=== PATIENT | male | born 1945 | race African-American/Black ===

== ENCOUNTER 2018-03-25 15:11 | Inpatient (IN) | payer OTHER ==
[~2018-03-25] VITALS: Ht 170.2 cm; Wt 64.0 kg
[~2018-03-25 15:11] MED LIST: LIDOCAINE HCL/PF 1% 2ML VIAL ONE
[2018-03-25] MEDS: NALOXONE HCL 0.4 MG/ML 1ML VIAL IV PRN ×2 (15:27→19:25)
[2018-03-25] MEDS ORDERED: NALOXONE HCL 0.4 MG/ML 1ML VIAL ONE (15:30)
[2018-03-25 16:30] LABS: BASOPHILS % 0.6 % (0.0-2.0); EOSINOPHILS % 0.1 % (0.0-5.0); HEMATOCRIT. 30.9 % (42.0-52.0); HEMOGLOBIN. 10.4 g/dL (14.0-18.0); LYMPHOCYTES % 17.6 % (20.0-50.0); MEAN CORPUSCULAR HEMOGLOBIN 35.8 pg (28.0-32.0); MEAN CORPUSCULAR VOLUME 106.2 fL (80.0-94.0); MEAN PLATELET VOLUME 7.8 fl (7.4-10.4); MONOCYTES % 6.7 % (2.0-8.0); PLATELET 169 x1000/uL (130-400); RED BLOOD CELL COUNT 2.91 mill/uL (4.7-6.1); RED CELL DISTRIBUTION WIDTH 18.5 % (11.6-14.6)
[2018-03-25 16:37] LABS: CHLORIDE 102 mEq/L (98-107)
[2018-03-25 16:41] LABS: ETHANOL BLOOD < 10 mg/dL
[2018-03-25 16:44] LABS: AMMONIA 32 uMol/L (<32)
[2018-03-25 16:48] LABS: CLARITY URINE CLEAR (CLEAR); COLOR URINE YELLOW (YELLOW); KETONES URINE TRACE (NEGATIVE); LEUKOCYTE ESTERASE URINE NEGATIVE (NEGATIVE); NITRITE URINE NEGATIVE (NEGATIVE); OCCULT BLOOD URINE TRACE (NEGATIVE); PH URINE 5.5 (4.5-8.0); PROTEIN URINE 1+ (NEGATIVE); SPECIFIC GRAVITY URINE 1.016 (1.005-1.030)
[2018-03-25 17:38] LABS: BG BASE EXCESS 0.4 mmol/L (-2.0-2.0); BG CARBOXYHEMOGLOBIN 0.3 % (0.5-1.5); BG DEOXYHEMOGLOBIN 2.8 % (0.0-5.0); BG FRACTION INSPIRED OXYGEN 21; BG HCO3 ACT 23.3 mmol/L (22.0-26.0); BG METHEMOGLOBIN 0.3 % (0.0-1.5); BG OXYGEN SATURATION 97.2 % (92.0-98.5); BG OXYHEMOGLOBIN 96.6 % (94.0-97.0); BG PCO2 31.5 mmHg (35.0-45.0); BG PH 7.487 (7.350-7.450); BG PO2 98.8 mmHg (75.0-100.0); BG SAMPLE SITE RIGHT RADIAL; BG TOTAL HEMOGLOBIN 10.7 g/dL (12.0-18.0); BG VENT MODE ROOM AIR
[2018-03-25] MEDS ORDERED: SODIUM CHLORIDE 0.9% 1000ML BAG (SEPSIS BOLUS) IV ONE (18:00)
[2018-03-25 20:30] LABS: *AMPHETAMINES SCREEN URINE NEGATIVE (NEGATIVE); *BARBITURATES SCREEN URINE NEGATIVE (NEGATIVE); *BENZODIAZEPINES SCREEN URINE PRESUMTIVE POSITIVE (NEGATIVE); *COCAINE SCREEN URINE NEGATIVE (NEGATIVE); METHADONE URINE SCREEN NEGATIVE (NEGATIVE); OPIATES URINE SCREEN NEGATIVE (NEGATIVE)
[2018-03-25 20:31] LABS: CANNABINOID URINE SCREEN NEGATIVE (NEGATIVE); PHENCYCLIDINE URINE SCREEN NEGATIVE (NEGATIVE)
[2018-03-25] MEDS ORDERED: CLONIDINE 0.1MG TABLET PO PRN (20:45)
[2018-03-25] MEDS ORDERED: MAGNESIUM/ALUMINUM HYDROXIDE/SIMETHICONE 30ML UDC PO PRN (20:45)
[2018-03-25] MEDS ORDERED: GUAIFENESIN 200MG/10ML SUGAR FREE UDC PO PRN (20:45)
[2018-03-25] MEDS ORDERED: LORAZEPAM 0.5MG TABLET PO PRN (20:45)
[2018-03-25] MEDS ORDERED: IPRATROPIUM/ALBUTEROL 0.5-3(2.5)MG/3ML NEB INH PRN (20:45)
[2018-03-25] MEDS ORDERED: NITROGLYCERIN 0.4MG TABLET SL SL PRN (21:15)
[2018-03-25 21:24] LABS: FOLIC ACID (FOLATE) SERUM 2.1 ng/mL (>5.38)
[2018-03-25] MEDS ORDERED: NA PHOS,M-B/NA PHOS,DI-BA ENEMA 118ML PR PRN (23:30)
[2018-03-26] VITALS (9 sets, daily range): BP systolic 128–162; BP diastolic 67–81
[2018-03-26] MEDS ORDERED: ATOR40TA70 PO (00:41)
[2018-03-26] MEDS ORDERED: NALT50TA5 PO (00:41)
[2018-03-26] MEDS ORDERED: POTA10CA42 PO (00:41)
[2018-03-26] MEDS ORDERED: HYDR25TA PO (00:41)
[2018-03-26] MEDS ORDERED: ASPI-986 PO (00:41)
[2018-03-26] MEDS ORDERED: KETOROLAC 15MG/ML VIAL IV PRN (01:11)
[2018-03-26] MEDS ORDERED: ZOLPIDEM TARTRATE 5MG TABLET PO PRN (01:12)
[2018-03-26] MEDS ORDERED: ONDANSETRON HCL 4MG/2ML INJ IV PRN (01:12)
[2018-03-26] MEDS ORDERED: POTASSIUM CHLORIDE 20MEQ TABLET SR PO SCH (01:13)
[2018-03-26] MEDS: DILTIAZEM HCL 60MG TABLET PO SCH ×4 (01:49→19:10)
[2018-03-26] MEDS: KCL 10MEQ/50ML PREMIX 50 ML IV SCH ×2 (02:15→05:48)
[2018-03-26] MEDS ORDERED: MVI, ADULT NO.1 10 ML, FOLIC ACID 1 MG, THIAMINE HCL 100 MG in SODIUM CHLORIDE 0.9% 1,0... IV SCH ×4 (03:00)
[2018-03-26] MEDS ORDERED: CEFTRIAXONE 1 G PREMIX 50 ML IV SCH (03:00)
[2018-03-26] MEDS ORDERED: LEVOFLOXACIN 500MG PREMIX 100 ML IV SCH (04:00)
[2018-03-26] MEDS: HYDRALAZINE HCL 50MG TABLET PO SCH ×3 (05:41→21:49)
[2018-03-26] MEDS: SUCRALFATE 1 G/10 ML UDC PO SCH ×4 (06:20→21:48)
[2018-03-26 07:56] LABS: CREATINE KINASE MB FRACTION 1.4 ng/mL (0.5-3.6)
[2018-03-26] MEDS: DOCUSATE SODIUM 100MG CAPSULE PO PRN (08:17)
[2018-03-26] MEDS: LISINOPRIL 20MG TABLET PO SCH ×2 (08:18→21:49)
[2018-03-26] MEDS: ASPIRIN 325MG EC TABLET PO SCH (08:18)
[2018-03-26] MEDS: FAMOTIDINE 20MG TABLET PO SCH ×2 (08:18→21:49)
[2018-03-26] MEDS: ENOXAPARIN 40MG/0.4ML SYR SUBCUT SCH (08:21)
[2018-03-26 11:28] LABS: BASOPHILS % 0.6 % (0.0-2.0); EOSINOPHILS % 1.1 % (0.0-5.0); HEMATOCRIT. 26.3 % (42.0-52.0); HEMOGLOBIN. 8.9 g/dL (14.0-18.0); LYMPHOCYTES % 23.1 % (20.0-50.0); MEAN CORPUSCULAR HEMOGLOBIN 36.5 pg (28.0-32.0); MEAN CORPUSCULAR VOLUME 107.4 fL (80.0-94.0); MEAN PLATELET VOLUME 8.8 fl (7.4-10.4); NEUTROPHILS % 67.2 % (40.0-76.0); PLATELET 134 x1000/uL (130-400); RED BLOOD CELL COUNT 2.45 mill/uL (4.7-6.1); RED CELL DISTRIBUTION WIDTH 18.2 % (11.6-14.6)
[2018-03-26 11:42] LABS: CHLORIDE 104 mEq/L (98-107)
[2018-03-26] MEDS ORDERED: POTASSIUM CHLORIDE 20MEQ TABLET SR PO NR (13:15)
[2018-03-26] MEDS: CYANOCOBALAMIN 1000MCG/ML VIAL IM SCH (13:43)
[2018-03-26] MEDS ORDERED: KCL 20MEQ/100ML PREMIX 100 ML IV NR (14:00)
[2018-03-26] MEDS ORDERED: FOLIC ACID 1 MG in SODIUM CHLORIDE 0.9% 500 ML IV NR (14:30)
[2018-03-26] MEDS ORDERED: MAGNESIUM 2 G PREMIX 50 ML IV ONE (15:00)
[2018-03-26] MEDS ORDERED: MAGNESIUM SULFATE 2 GM in DEXTROSE 5% WATER 50 ML IV NR (17:00)
[2018-03-27] VITALS (7 sets, daily range): BP systolic 132–165; BP diastolic 55–81
[2018-03-27] MEDS: DILTIAZEM HCL 60MG TABLET PO SCH ×3 (00:57→12:51)
[2018-03-27] MEDS: CEFTRIAXONE 1 G PREMIX 50 ML IV SCH (05:57)
[2018-03-27] MEDS: LEVOFLOXACIN 500MG PREMIX 100 ML IV SCH (06:35)
[2018-03-27] MEDS: HYDRALAZINE HCL 50MG TABLET PO SCH ×3 (06:36→20:45)
[2018-03-27] MEDS: FOLIC ACID 1MG TABLET PO SCH (09:15)
[2018-03-27] MEDS: LISINOPRIL 20MG TABLET PO SCH ×2 (09:17→20:45)
[2018-03-27] MEDS: SUCRALFATE 1 G/10 ML UDC PO SCH ×4 (09:17→20:44)
[2018-03-27] MEDS: FAMOTIDINE 20MG TABLET PO SCH ×2 (09:17→20:45)
[2018-03-27] MEDS: DOCUSATE SODIUM 100MG CAPSULE PO PRN ×2 (09:17→20:49)
[2018-03-27] MEDS: ASPIRIN 325MG EC TABLET PO SCH (09:17)
[2018-03-27] MEDS: ENOXAPARIN 40MG/0.4ML SYR SUBCUT SCH (09:27)
[2018-03-27 10:38] LABS: BASOPHILS % 0.6 % (0.0-2.0); EOSINOPHILS % 0.7 % (0.0-5.0); HEMATOCRIT. 27.4 % (42.0-52.0); HEMOGLOBIN. 9.3 g/dL (14.0-18.0); LYMPHOCYTES % 13.2 % (20.0-50.0); MEAN CORPUSCULAR VOLUME 109.6 fL (80.0-94.0); MEAN PLATELET VOLUME 8.4 fl (7.4-10.4); MONOCYTES % 5.9 % (2.0-8.0); NEUTROPHILS % 79.6 % (40.0-76.0); PLATELET 138 x1000/uL (130-400); RED CELL DISTRIBUTION WIDTH 18.2 % (11.6-14.6)
[2018-03-27 10:44] LABS: CHLORIDE 106 mEq/L (98-107)
[2018-03-27] MEDS ORDERED: MAGNESIUM 2 G PREMIX 50 ML IV ONE (11:45)
[2018-03-27] MEDS ORDERED: MAGNESIUM SULFATE 2 GM in DEXTROSE 5% WATER 50 ML IV NR (12:30)
[2018-03-27] MEDS: CYANOCOBALAMIN 1000MCG/ML VIAL IM SCH (13:36)
[2018-03-27] MEDS ORDERED: VERAPAMIL HCL 2.5 MG/1 ML 2ML VIAL IV PRN (15:00)
[2018-03-27] MEDS ORDERED: POTASSIUM CHLORIDE 20MEQ TABLET SR PO SCH (15:00)
[2018-03-27] MEDS: DILTIAZEM HCL 30MG TABLET PO SCH ×2 (18:53→23:39)
[2018-03-27] MEDS: ACETAMINOPHEN 325MG TABLET PO PRN ×2 (18:54→20:46)
[2018-03-28] MEDS: CEFTRIAXONE 1 G PREMIX 50 ML IV SCH (03:59)
[2018-03-28 04:00] VITALS: BP 141/65
[2018-03-28] MEDS: LEVOFLOXACIN 500MG PREMIX 100 ML IV SCH (05:00)
[2018-03-28] MEDS: HYDRALAZINE HCL 50MG TABLET PO SCH ×2 (06:03→14:51)
[2018-03-28] MEDS: SUCRALFATE 1 G/10 ML UDC PO SCH ×2 (06:04→13:41)
[2018-03-28] MEDS: DILTIAZEM HCL 30MG TABLET PO SCH ×2 (06:04→13:44)
[2018-03-28 08:30] VITALS: BP 130/60
[2018-03-28 09:41] LABS: HEMATOCRIT. 29.9 % (42.0-52.0); HEMOGLOBIN. 9.9 g/dL (14.0-18.0); MEAN CORPUSCULAR HEMOGLOBIN 36.6 pg (28.0-32.0); MEAN CORPUSCULAR VOLUME 110.6 fL (80.0-94.0); PLATELET 144 x1000/uL (130-400); RED CELL DISTRIBUTION WIDTH 18.2 % (11.6-14.6)
[2018-03-28] MEDS: CYANOCOBALAMIN 1000MCG/ML VIAL IM SCH (10:02)
[2018-03-28] MEDS: DOCUSATE SODIUM 100MG CAPSULE PO PRN (10:03)
[2018-03-28] MEDS: ASPIRIN 325MG EC TABLET PO SCH (10:03)
[2018-03-28] MEDS: LISINOPRIL 20MG TABLET PO SCH (10:03)
[2018-03-28] MEDS: FAMOTIDINE 20MG TABLET PO SCH (10:04)
[2018-03-28] MEDS: FOLIC ACID 1MG TABLET PO SCH (10:04)
[2018-03-28] MEDS: ENOXAPARIN 40MG/0.4ML SYR SUBCUT SCH (10:05)
[2018-03-28 10:07] LABS: CHLORIDE 107 mEq/L (98-107)
[2018-03-28] MEDS ORDERED: MAGNESIUM 1 G PREMIX 100 ML IV NR (12:30)
[2018-03-28 13:42] VITALS: BP 144/84
[2018-03-28 15:28] VITALS: BP 141/82
[2018-03-29 09:08] LABS: PLATELET ESTIMATE NORMAL
== END 2018-03-28 16:40 | disposition short-term general hospital (02) | DRG 871 ==
LOC: ER 15:11 → 6WST 20:24 → ENRESERV 20:54
PROVIDERS: ADMIT Internal Medicine; ATTEND Internal Medicine
DX: A41.9 Sepsis, unspecified organism (principal); G92 Toxic encephalopathy; E87.2 Acidosis; F10.10 Alcohol abuse, uncomplicated; I10 Essential (primary) hypertension; E87.6 Hypokalemia; D63.8 Anemia in other chronic diseases classified elsewhere; D52.9 Folate deficiency anemia, unspecified; D51.9 Vitamin B12 deficiency anemia, unspecified; E78.00 Pure hypercholesterolemia, unspecified; E78.5 Hyperlipidemia, unspecified; E83.42 Hypomagnesemia; I95.9 Hypotension, unspecified; I48.0 Paroxysmal atrial fibrillation; Z53.29 Procedure and treatment not carried out because of patient's decision for other reasons; Z79.82 Long term (current) use of aspirin; Z79.899 Other long term (current) drug therapy; Z91.19 Patient's noncompliance with other medical treatment and regimen; Z71.41 Alcohol abuse counseling and surveillance of alcoholic
CPT/HCPCS: 36415; 36600; 70450; 70551; 71045; 80048; 80053; 80061; 80305; 80307; 80329; 81003; 82140; 82375; 82550; 82553; 82607; 82746; 82805; 83036; 83540; 83550; 83605; 83735; 83880; 84443; 84484; 85025; 87040; 87086; 93005; 93306; 93970; 96374; 99285; G0482; J0696; J1650; J1885; J1956; J2310; J3411; J3420; J3475; J3480; J3490; J7030; J7040; J7060

== ENCOUNTER 2018-08-26 07:50 | Inpatient (IN) | payer OTHER ==
[~2018-08-26] VITALS: Ht 162.6 cm; Wt 62.1 kg
[2018-08-26] VITALS (7 sets, daily range): BP systolic 144–175; BP diastolic 61–99
[~2018-08-26 07:50] MED LIST changes: +ASPI-986 PO; +ATOR40TA70 PO; +HYDR25TA PO; -LIDOCAINE HCL/PF 1% 2ML VIAL ONE; +NALT50TA5 PO; +POTA10CA42 PO
[2018-08-26 08:40] LABS: BASOPHILS % 0.5 % (0.0-2.0); EOSINOPHILS % 0.1 % (0.0-5.0); HEMOGLOBIN. 12.8 g/dL (14.0-18.0); LYMPHOCYTES % 21.9 % (20.0-50.0); MEAN CORPUSCULAR HEMOGLOBIN 29.4 pg (28.0-32.0); MEAN CORPUSCULAR VOLUME 89.8 fL (80.0-94.0); MEAN PLATELET VOLUME 8.4 fl (7.4-10.4); MONOCYTES % 5.7 % (2.0-8.0); NEUTROPHILS % 71.8 % (40.0-76.0); PLATELET 208 x1000/uL (130-400); RED BLOOD CELL COUNT 4.34 mill/uL (4.7-6.1); RED CELL DISTRIBUTION WIDTH 18.8 % (11.6-14.6)
[2018-08-26 08:46] LABS: CHLORIDE 97 mEq/L (98-107); PROTHROMBIN TIME 9.8 sec (9.1-11.1)
[2018-08-26 08:50] LABS: ETHANOL BLOOD < 10 mg/dL
[2018-08-26 09:03] LABS: CLARITY URINE CLEAR (CLEAR); COLOR URINE YELLOW (YELLOW); KETONES URINE 2+ (NEGATIVE); LEUKOCYTE ESTERASE URINE NEGATIVE (NEGATIVE); NITRITE URINE NEGATIVE (NEGATIVE); OCCULT BLOOD URINE TRACE (NEGATIVE); PROTEIN URINE 2+ (NEGATIVE); SPECIFIC GRAVITY URINE 1.012 (1.005-1.030); UROBILINOGEN URINE 0.2 E.U./dL (0.2-1.0)
[2018-08-26] MEDS ORDERED: POTASSIUM CHLORIDE 20MEQ TABLET SR PO ONE (09:15)
[2018-08-26 09:16] LABS: *AMPHETAMINES SCREEN URINE NEGATIVE (NEGATIVE); *BENZODIAZEPINES SCREEN URINE NEGATIVE (NEGATIVE)
[2018-08-26 09:17] LABS: *BARBITURATES SCREEN URINE NEGATIVE (NEGATIVE); *COCAINE SCREEN URINE NEGATIVE (NEGATIVE); CANNABINOID URINE SCREEN NEGATIVE (NEGATIVE); METHADONE URINE SCREEN NEGATIVE (NEGATIVE); OPIATES URINE SCREEN NEGATIVE (NEGATIVE); PHENCYCLIDINE URINE SCREEN NEGATIVE (NEGATIVE)
[2018-08-26] MEDS ORDERED: LORAZEPAM 2MG/ML CPJ IV ONE ×2 (12:45→13:15)
[2018-08-26] MEDS ORDERED: DILTIAZEM HCL 5MG/ML 5ML VIAL IV ONE ×3 (13:30→15:15)
[2018-08-26] MEDS ORDERED: DILTIAZEM HCL 60MG TABLET PO ONE (13:30)
[2018-08-26] MEDS ORDERED: ACETAMINOPHEN 650MG/20.3ML UDC GT PRN (13:45)
[2018-08-26] MEDS ORDERED: DOCUSATE SODIUM 100MG CAPSULE PO PRN (13:45)
[2018-08-26] MEDS ORDERED: HYDROCODONE/ACETAMINOPHEN 5/325MG TABLET PO PRN (13:45)
[2018-08-26] MEDS ORDERED: MAGNESIUM/ALUMINUM HYDROXIDE/SIMETHICONE 30ML UDC PO PRN (13:45)
[2018-08-26] MEDS ORDERED: CLONIDINE 0.1MG TABLET PO PRN (13:45)
[2018-08-26] MEDS ORDERED: ACETAMINOPHEN 325MG TABLET PO PRN (13:45)
[2018-08-26] MEDS ORDERED: ONDANSETRON HCL 4MG/2ML INJ IV PRN (13:45)
[2018-08-26] MEDS ORDERED: DIPHENHYDRAMINE 50MG/ML VIAL IV PRN (13:45)
[2018-08-26] MEDS ORDERED: IPRATROPIUM/ALBUTEROL 0.5-3(2.5)MG/3ML NEB INH PRN (13:45)
[2018-08-26] MEDS ORDERED: ACETAMINOPHEN 650MG SUPP PR PRN (13:45)
[2018-08-26] MEDS ORDERED: GUAIFENESIN 200MG/10ML SUGAR FREE UDC PO PRN (13:45)
[2018-08-26] MEDS ORDERED: NA PHOS,M-B/NA PHOS,DI-BA ENEMA 118ML PR PRN (13:45)
[2018-08-26] MEDS ORDERED: LEVETIRACETAM 500MG PREMIX 100 ML IV ONE (13:45)
[2018-08-26] MEDS ORDERED: CHLORDIAZEPOXIDE 25MG CAPSULE PO SCH (14:00)
[2018-08-26] MEDS ORDERED: DILTIAZEM HCL 125 MG in DEXT 5% WATER 100 ML IV ONE ×2 (14:15→14:30)
[2018-08-26] MEDS: SODIUM CHLORIDE 0.9% INJ 3ML FLUSH IVF SCH ×2 (14:37→23:15)
[2018-08-26 15:12] LABS: CREATINE KINASE MB FRACTION 1.9 ng/mL (0.5-3.6)
[2018-08-26] MEDS ORDERED: ENOXAPARIN 60MG/0.6ML SYR SUBCUT ONE (15:15)
[2018-08-26] MEDS ORDERED: POTASSIUM CHLORIDE 20MEQ TABLET SR PO NR (16:15)
[2018-08-26] MEDS: CHLORDIAZEPOXIDE 25MG CAPSULE PO SCH ×2 (18:00→23:15)
[2018-08-26] MEDS: LEVETIRACETAM 500MG TABLET PO SCH (20:31)
[2018-08-26] MEDS: LISINOPRIL 20MG TABLET PO SCH (20:32)
[2018-08-27] VITALS (13 sets, daily range): BP systolic 102–149; BP diastolic 55–87
[2018-08-27 01:52] LABS: CREATINE KINASE MB FRACTION 2.5 ng/mL (0.5-3.6)
[2018-08-27] MEDS: DILTIAZEM HCL 60MG TABLET PO SCH ×4 (05:33→22:00)
[2018-08-27] MEDS: SODIUM CHLORIDE 0.9% INJ 3ML FLUSH IVF SCH ×3 (05:39→23:19)
[2018-08-27] MEDS: CHLORDIAZEPOXIDE 25MG CAPSULE PO SCH ×3 (05:39→22:53)
[2018-08-27 06:32] LABS: BASOPHILS % 0.4 % (0.0-2.0); EOSINOPHILS % 0.3 % (0.0-5.0); HEMATOCRIT. 34.9 % (42.0-52.0); HEMOGLOBIN. 11.6 g/dL (14.0-18.0); LYMPHOCYTES % 16.9 % (20.0-50.0); MEAN CORPUSCULAR HEMOGLOBIN 29.5 pg (28.0-32.0); MEAN CORPUSCULAR VOLUME 88.9 fL (80.0-94.0); MEAN PLATELET VOLUME 8.6 fl (7.4-10.4); MONOCYTES % 14.9 % (2.0-8.0); NEUTROPHILS % 67.5 % (40.0-76.0); PLATELET 155 x1000/uL (130-400); RED BLOOD CELL COUNT 3.93 mill/uL (4.7-6.1)
[2018-08-27 06:39] LABS: CHLORIDE 97 mEq/L (98-107)
[2018-08-27 06:56] LABS: LDL CHOLESTEROL 90 mg/dL (5-100)
[2018-08-27 06:59] LABS: HDL CHOLESTEROL 77 mg/dL (40-59)
[2018-08-27] MEDS: LEVETIRACETAM 500MG TABLET PO SCH ×2 (09:24→22:53)
[2018-08-27] MEDS: LISINOPRIL 20MG TABLET PO SCH ×2 (09:24→22:54)
[2018-08-27] MEDS ORDERED: MAGNESIUM 2 G PREMIX 50 ML IV SCH (11:00)
[2018-08-27] MEDS: MAGNESIUM OXIDE 400MG TABLET PO SCH (12:17)
[2018-08-27] MEDS: ENOXAPARIN 60MG/0.6ML SYR SUBCUT SCH (12:17)
[2018-08-27] MEDS ORDERED: KCL 20MEQ/100ML PREMIX 100 ML IV SCH (13:00)
[2018-08-27] MEDS ORDERED: DILT60TA35 PO (19:38)
[2018-08-27] MEDS ORDERED: LOV60 SUBCUT (19:38)
[2018-08-27] MEDS ORDERED: L25 PO (19:38)
[2018-08-28] VITALS (13 sets, daily range): BP systolic 105–134; BP diastolic 47–84
[2018-08-28] MEDS: DILTIAZEM HCL 60MG TABLET PO SCH ×3 (05:47→21:16)
[2018-08-28] MEDS: SODIUM CHLORIDE 0.9% INJ 3ML FLUSH IVF SCH ×3 (05:48→21:16)
[2018-08-28] MEDS: CHLORDIAZEPOXIDE 25MG CAPSULE PO SCH ×3 (05:48→21:15)
[2018-08-28 06:53] LABS: BASOPHILS % 0.3 % (0.0-2.0); EOSINOPHILS % 1.5 % (0.0-5.0); HEMATOCRIT. 37.8 % (42.0-52.0); HEMOGLOBIN. 12.1 g/dL (14.0-18.0); LYMPHOCYTES % 14.7 % (20.0-50.0); MEAN CORPUSCULAR VOLUME 90.6 fL (80.0-94.0); MEAN PLATELET VOLUME 8.6 fl (7.4-10.4); NEUTROPHILS % 74.5 % (40.0-76.0); PLATELET 177 x1000/uL (130-400); RED BLOOD CELL COUNT 4.17 mill/uL (4.7-6.1); RED CELL DISTRIBUTION WIDTH 19.5 % (11.6-14.6)
[2018-08-28 06:55] LABS: CHLORIDE 99 mEq/L (98-107)
[2018-08-28] MEDS: LEVETIRACETAM 500MG TABLET PO SCH ×2 (08:25→21:15)
[2018-08-28] MEDS: MAGNESIUM OXIDE 400MG TABLET PO SCH (08:26)
[2018-08-28] MEDS: LISINOPRIL 20MG TABLET PO SCH ×2 (08:26→21:15)
[2018-08-28] MEDS ORDERED: DIGOXIN 500MCG/2ML AMP IV SCH ×2 (09:00→11:00)
[2018-08-28] MEDS ORDERED: POTASSIUM CHLORIDE 20MEQ TABLET SR PO SCH (09:00)
[2018-08-28] MEDS: ENOXAPARIN 60MG/0.6ML SYR SUBCUT SCH (10:00)
[2018-08-28] MEDS ORDERED: DIGOXIN 125MCG TABLET PO SCH (18:00)
== END 2018-08-28 22:44 | disposition short-term general hospital (02) | DRG 101 ==
LOC: ER 07:56 → 3WST 13:32 → EDBEDREQTM 13:48 → EDBEDREQSVC 13:48 → ENRESERV 16:06 → 3WST 19:31
PROVIDERS: ADMIT Family Medicine; ATTEND Family Medicine
DX: G40.909 Epilepsy, unspecified, not intractable, without status epilepticus (principal); R64 Cachexia; I47.1 Supraventricular tachycardia; F10.239 Alcohol dependence with withdrawal, unspecified; I48.0 Paroxysmal atrial fibrillation; E78.5 Hyperlipidemia, unspecified; E87.6 Hypokalemia; E83.42 Hypomagnesemia; I11.9 Hypertensive heart disease without heart failure; D63.8 Anemia in other chronic diseases classified elsewhere; F17.210 Nicotine dependence, cigarettes, uncomplicated; I49.3 Ventricular premature depolarization; Z91.14 Patient's other noncompliance with medication regimen; Z91.19 Patient's noncompliance with other medical treatment and regimen; Z79.899 Other long term (current) drug therapy; Z79.82 Long term (current) use of aspirin; Z78.1 Physical restraint status; Z68.23 Body mass index [BMI] 23.0-23.9, adult
CPT/HCPCS: 36415; 80048; 80061; 80305; 82550; 82553; 83735; 83880; 84443; 84484; 93005; 93306; 93970; 96365; 96366; 96375; 99291; J1160; J1650; J1953; J2060; J3475; J3480; J3490; J7050; J7060

== ENCOUNTER 2018-10-13 16:23 | Inpatient (IN) | payer OTHER ==
[~2018-10-13] VITALS: Ht 170.2 cm; Wt 65.1 kg
[~2018-10-13 16:23] MED LIST changes: +DILT60TA35 PO; +L25 PO; +LOV60 SUBCUT
[2018-10-13] MEDS ORDERED: LORAZEPAM 2MG/ML CPJ ONE (17:58)
[2018-10-13] MEDS ORDERED: LEVETIRACETAM 500MG PREMIX 100 ML IV ONE (18:00)
[2018-10-13] MEDS ORDERED: LORAZEPAM 2MG/ML CPJ IV ONE ×3 (18:00→22:15)
[2018-10-13 18:05] LABS: CLARITY URINE CLEAR (CLEAR); COLOR URINE YELLOW (YELLOW); KETONES URINE 1+ (NEGATIVE); LEUKOCYTE ESTERASE URINE NEGATIVE (NEGATIVE); NITRITE URINE NEGATIVE (NEGATIVE); OCCULT BLOOD URINE 1+ (NEGATIVE); PH URINE 6.5 (4.5-8.0); PROTEIN URINE 2+ (NEGATIVE); UROBILINOGEN URINE 0.2 E.U./dL (0.2-1.0)
[2018-10-13 18:07] LABS: HEMATOCRIT. 35.7 % (42.0-52.0); HEMOGLOBIN. 11.9 g/dL (14.0-18.0); MEAN CORPUSCULAR HEMOGLOBIN 30.1 pg (28.0-32.0); MEAN CORPUSCULAR VOLUME 89.7 fL (80.0-94.0); MEAN PLATELET VOLUME 8.3 fl (7.4-10.4); PLATELET 105 x1000/uL (130-400); RED BLOOD CELL COUNT 3.97 mill/uL (4.7-6.1); RED CELL DISTRIBUTION WIDTH 18.1 % (11.6-14.6)
[2018-10-13 18:11] LABS: CHLORIDE 97 mEq/L (98-107)
[2018-10-13 18:12] LABS: PARTIAL THROMBOPLASTIN TIME 24.6 sec (23.4-31.0); PROTHROMBIN TIME 10.7 sec (9.6-11.0)
[2018-10-13 18:15] LABS: ETHANOL BLOOD < 10 mg/dL
[2018-10-13 18:19] LABS: *BARBITURATES SCREEN URINE NEGATIVE (NEGATIVE); *BENZODIAZEPINES SCREEN URINE NEGATIVE (NEGATIVE); CREATINE KINASE 139 IU/L (39-308); PHENCYCLIDINE URINE SCREEN NEGATIVE (NEGATIVE)
[2018-10-13 18:20] LABS: *AMPHETAMINES SCREEN URINE NEGATIVE (NEGATIVE); *COCAINE SCREEN URINE NEGATIVE (NEGATIVE); CANNABINOID URINE SCREEN NEGATIVE (NEGATIVE); CARBAMAZEPINE < 0.5 ug/mL (4-12); METHADONE URINE SCREEN NEGATIVE (NEGATIVE); OPIATES URINE SCREEN NEGATIVE (NEGATIVE)
[2018-10-13 18:26] LABS: PHENOBARBITAL < 2.1 ug/mL (15.0-40.0)
[2018-10-13 18:59] LABS: PLATELET ESTIMATE DECREASED
[2018-10-13] MEDS ORDERED: SODIUM CHLORIDE 0.9% 500 ML IV NR (21:45)
[2018-10-13] MEDS ORDERED: HALOPERIDOL LACTATE 5MG/ML VIAL IM ONE (22:15)
[2018-10-14] VITALS (9 sets, daily range): BP systolic 132–165; BP diastolic 58–98
[2018-10-14] MEDS ORDERED: LORAZEPAM 2MG/ML CPJ IV NR (05:30)
[2018-10-14] MEDS ORDERED: IPRATROPIUM/ALBUTEROL 0.5-3(2.5)MG/3ML NEB INH PRN (08:00)
[2018-10-14] MEDS ORDERED: NA PHOS,M-B/NA PHOS,DI-BA ENEMA 118ML PR PRN (08:00)
[2018-10-14] MEDS ORDERED: MAGNESIUM/ALUMINUM HYDROXIDE/SIMETHICONE 30ML UDC PO PRN (08:00)
[2018-10-14] MEDS ORDERED: ONDANSETRON HCL 4MG/2ML INJ IV PRN (08:00)
[2018-10-14] MEDS ORDERED: ACETAMINOPHEN 325MG TABLET PO PRN (08:00)
[2018-10-14] MEDS ORDERED: CLONIDINE 0.1MG TABLET PO PRN (08:00)
[2018-10-14] MEDS ORDERED: LORAZEPAM 2MG/ML CPJ IV PRN ×2 (08:00→18:15)
[2018-10-14] MEDS ORDERED: GUAIFENESIN 200MG/10ML SUGAR FREE UDC PO PRN (08:00)
[2018-10-14] MEDS ORDERED: DOCUSATE SODIUM 100MG CAPSULE PO PRN (08:00)
[2018-10-14] MEDS ORDERED: HYDROCODONE/ACETAMINOPHEN 5/325MG TABLET PO PRN (08:00)
[2018-10-14 08:46] LABS: CHLORIDE 97 mEq/L (98-107)
[2018-10-14] MEDS ORDERED: HYDROMORPHONE HCL/PF 2MG/ML CPJ IV PRN (11:00)
[2018-10-14] MEDS: FOLIC ACID 1MG TABLET PO SCH (12:03)
[2018-10-14] MEDS: THIAMINE HCL 100MG TABLET PO SCH (12:04)
[2018-10-14] MEDS: ASPIRIN 81MG EC TABLET PO SCH (12:04)
[2018-10-14] MEDS: ENOXAPARIN 40MG/0.4ML SYR SUBCUT SCH (12:04)
[2018-10-14] MEDS: DEXT 5%/0.45% NACL 1000ML 1,000 ML IV SCH (12:05)
[2018-10-14] MEDS ORDERED: PNEUMOCOCCAL 23-VAL P-SAC VAC 0.5 ML IM ONE (13:00)
[2018-10-14] MEDS: LEVOFLOXACIN 500MG PREMIX 100 ML IV SCH (13:37)
[2018-10-14] MEDS: DIPHENHYDRAMINE 50MG/ML VIAL IV PRN (19:19)
[2018-10-14] MEDS: LORAZEPAM 2MG/ML CPJ IV PRN (19:37)
[2018-10-15] VITALS (12 sets, daily range): BP systolic 109–177; BP diastolic 63–100
[2018-10-15] MEDS: LORAZEPAM 2MG/ML CPJ IV PRN ×3 (00:43→19:40)
[2018-10-15] MEDS: DIPHENHYDRAMINE 50MG/ML VIAL IV PRN (02:31)
[2018-10-15] MEDS: DEXT 5%/0.45% NACL 1000ML 1,000 ML IV SCH ×2 (04:02→13:45)
[2018-10-15] MEDS ORDERED: AMLO5TAB88 PO (05:10)
[2018-10-15] MEDS ORDERED: METO25TA6 PO (05:11)
[2018-10-15 06:58] LABS: BASOPHILS % 0.4 % (0.0-2.0); EOSINOPHILS % 0.9 % (0.0-5.0); HEMATOCRIT. 37.3 % (42.0-52.0); HEMOGLOBIN. 12.3 g/dL (14.0-18.0); LYMPHOCYTES % 14.7 % (20.0-50.0); MEAN CORPUSCULAR HEMOGLOBIN 30.2 pg (28.0-32.0); MEAN PLATELET VOLUME 8.7 fl (7.4-10.4); MONOCYTES % 10.6 % (2.0-8.0); NEUTROPHILS % 73.4 % (40.0-76.0); PLATELET 85 x1000/uL (130-400); RED BLOOD CELL COUNT 4.06 mill/uL (4.7-6.1); RED CELL DISTRIBUTION WIDTH 17.1 % (11.6-14.6)
[2018-10-15 07:14] LABS: CHLORIDE 101 mEq/L (98-107)
[2018-10-15 07:29] LABS: LDL CHOLESTEROL 62 mg/dL (5-100); T4 FREE 1.03 ng/dL (0.76-1.46)
[2018-10-15 07:30] LABS: HDL CHOLESTEROL 78 mg/dL (40-59)
[2018-10-15] MEDS: THIAMINE HCL 100MG TABLET PO SCH (09:59)
[2018-10-15] MEDS: FOLIC ACID 1MG TABLET PO SCH (09:59)
[2018-10-15] MEDS: ASPIRIN 81MG EC TABLET PO SCH (09:59)
[2018-10-15] MEDS ORDERED: POTASSIUM CHLORIDE INJ 40 MEQ in DEXT 5% WATER 250 ML IV ONE (10:00)
[2018-10-15] MEDS: DILTIAZEM HCL 125 MG in DEXT 5% WATER 100 ML IV SCH (10:17)
[2018-10-15] MEDS: ENOXAPARIN 40MG/0.4ML SYR SUBCUT SCH (11:30)
[2018-10-15 12:20] LABS: T4 FREE 0.99 ng/dL (0.76-1.46)
[2018-10-15] MEDS: LEVOFLOXACIN 500MG PREMIX 100 ML IV SCH (13:43)
[2018-10-15 16:44] LABS: CREATINE KINASE MB FRACTION 1.7 ng/mL (0.5-3.6)
[2018-10-15] MEDS ORDERED: KCL 20MEQ/100ML PREMIX 100 ML IV NR (22:00)
[2018-10-15] MEDS: LAMOTRIGINE 25MG TABLET PO SCH (22:02)
[2018-10-16] VITALS (12 sets, daily range): BP systolic 133–158; BP diastolic 61–110
[2018-10-16 00:25] LABS: CREATINE KINASE MB FRACTION 1.5 ng/mL (0.5-3.6)
[2018-10-16] MEDS: LORAZEPAM 2MG/ML CPJ IV PRN ×2 (00:52→14:16)
[2018-10-16] MEDS: DILTIAZEM HCL 125 MG in DEXT 5% WATER 100 ML IV SCH ×2 (03:33→15:33)
[2018-10-16] MEDS: DEXT 5%/0.45% NACL 1000ML 1,000 ML IV SCH ×2 (04:56→14:23)
[2018-10-16 08:38] LABS: CHLORIDE 106 mEq/L (98-107)
[2018-10-16 08:52] LABS: CREATINE KINASE MB FRACTION 1.3 ng/mL (0.5-3.6)
[2018-10-16] MEDS: FOLIC ACID 1MG TABLET PO SCH (08:57)
[2018-10-16] MEDS: ASPIRIN 81MG EC TABLET PO SCH (08:57)
[2018-10-16] MEDS: METOPROLOL TARTRATE 50MG TABLET PO SCH ×2 (08:57→20:28)
[2018-10-16] MEDS: THIAMINE HCL 100MG TABLET PO SCH (08:57)
[2018-10-16] MEDS: LAMOTRIGINE 25MG TABLET PO SCH (08:57)
[2018-10-16] MEDS: ENOXAPARIN 40MG/0.4ML SYR SUBCUT SCH (12:27)
[2018-10-16] MEDS ORDERED: LEVOFLOXACIN 500MG PREMIX 100 ML IV SCH (15:00)
== END 2018-10-16 23:17 | disposition short-term general hospital (02) | DRG 101 ==
LOC: ER 16:23 → EDBEDREQ 21:58 → EDBEDREQTM 21:58 → 5EST 22:23 → EDBEDREQSVC 22:38 → EDBEDREQTM 22:38 → EDBEDREQ 22:38 → ENRESERV 10-14 08:30
PROVIDERS: ADMIT Internal Medicine; ATTEND Internal Medicine
DX: G40.89 Other seizures (principal); F10.231 Alcohol dependence with withdrawal delirium; Z79.899 Other long term (current) drug therapy; E86.0 Dehydration; D64.9 Anemia, unspecified; E87.5 Hyperkalemia; D69.6 Thrombocytopenia, unspecified; E78.5 Hyperlipidemia, unspecified; I11.9 Hypertensive heart disease without heart failure; I48.91 Unspecified atrial fibrillation; Z79.82 Long term (current) use of aspirin
CPT/HCPCS: 36415; 71045; 78580; 80048; 80061; 80156; 80165; 80184; 80185; 80305; 80320; 82550; 82553; 82962; 83036; 83735; 83880; 84132; 84439; 84443; 84484; 85379; 92610; 93005; 93306; 93970; 96361; 96365; 96366; 96375; 96376; 99291; J1200; J1630; J1650; J1953; J1956; J2060; J3480; J3490; J7060; G0480